=== PATIENT | female | born 1970 | race Caucasian/White ===

== ENCOUNTER 2016-06-04 22:08 | Emergency (ER) | payer MEDICAID ==
[2016-06-04 23:49] LABS: ABSOLUTE NEUTROPHIL COUNT 4.3 K/mm3 (1.8-7.7); BASO % 0.4 % (0.2-1.0); EOS # 1.5 (0.0-0.5); EOS % 15.8 % (0.9-2.9); HEMATOCRIT 34.2 % (37.0-47.0); HEMOGLOBIN 11.1 gm/l (12.0-16.0); IMM NEUT% 0.2 % (0-1); LYMPH # 2.7 (1.0-4.8); LYMPH % 29.3 % (15-45); MEAN CELL VOLUME 88.6 fl (81.0-99.0); MEAN CORPUSCULAR HEMOGLOBIN 28.8 pg (27.0-31.0); MEAN CORPUSCULAR HGB CONC 32.5 g/dl (33.0-37.0); MONO # 0.6 (0.0-0.8); NEUT % 47.3 % (43-75); PLATELET COUNT 242 K/mm3 (130-400); RED CELL DISTRIBUTION WIDTH 13.3 % (11.5-14.5)
[2016-06-04 23:56] LABS: SPECIFIC GRAVITY 1.015 (1.001-1.030); URINE BILIRUBIN NEGATIVE (NEGATIVE); URINE BLOOD NEGATIVE (NEGATIVE); URINE GLUCOSE (UA) NEGATIVE (NEGATIVE); URINE LEUKOCYTE ESTERASE 2+ (NEGATIVE); URINE NITRITE NEGATIVE (NEGATIVE); URINE PROTEIN NEGATIVE (NEGATIVE); URINE UROBILINOGEN NORMAL (0-1 mg/dl)
[2016-06-04 23:58] LABS: URINE APPEARANCE SL CLOUDY; URINE COLOR YELLOW
[2016-06-05] LABS: HCG,QUALITATIVE URINE NEGATIVE
[2016-06-05 00:02] LABS: URINE BACTERIA 4+; URINE EPITHELIAL CELLS 15-20 /hpf
[2016-06-05 00:11] LABS: ALB/GLOB RATIO 1.2 (>1.0); ALBUMIN 4.1 gm/dL (3.5-5.7); CALCIUM 9.4 mg/dL (8.6-10.3); MAGNESIUM 1.9 mg/dL (1.9-2.7)
--- NOTE | 2016-06-05 07:48 | RAD ---
History: Numbness the left side of the head, torso and left arm for 3 days. Comparison: None. Technique: 2 views Findings: The soft tissue and bony structures are unremarkable. The heart size is appropriate. No infiltrate, effusion or pneumothorax is observed. The hilar and mediastinal structures are normal. Impression: 1. A negative 2 view chest
== END 2016-06-05 01:33 | disposition home or self-care (01) ==
LOC: ED 22:08
DX: R20.9 Unspecified disturbances of skin sensation (principal); M79.602 Pain in left arm